=== PATIENT | female | born 1940 | race Two or more races ===

== ENCOUNTER 2021-01-30 11:05 | Emergency (ER) | payer OTHER ==
[~2021-01-30] VITALS: Ht 157.5 cm; Wt 54.4 kg
[~2021-01-30 11:05] MED LIST: DOLOGEN CAPLET1 EACH PO; SEPTRA DS TABLE1 TAB PO; SIMVASTATIN20 MG
== END 2021-01-30 12:50 | disposition home or self-care (01) ==
LOC: ER 11:05
DX: S90.01XS Contusion of right ankle, sequela (principal); W18.09XS Striking against other object with subsequent fall, sequela

== ENCOUNTER 2021-06-08 16:11 | Emergency (ER) | payer OTHER ==
[~2021-06-08] VITALS: Ht 152.4 cm; Wt 49.9 kg
== END 2021-06-08 18:46 | disposition home or self-care (01) ==
LOC: ER 16:11
DX: M25.562 Pain in left knee (principal); G89.11 Acute pain due to trauma

== ENCOUNTER 2021-10-30 10:23 | Emergency (ER) | payer OTHER ==
[~2021-10-30] VITALS: Ht 154.9 cm; Wt 54.4 kg
== END 2021-10-30 13:20 | disposition home or self-care (01) ==
LOC: ER 10:23
DX: M75.32 Calcific tendinitis of left shoulder (principal)

== ENCOUNTER 2023-04-15 07:39 | Emergency (ER) | payer OTHER ==
[~2023-04-15] VITALS: Ht 154.9 cm; Wt 54.4 kg
== END 2023-04-15 12:10 ==
LOC: ER 07:39
DX: M54.59 Other low back pain (principal); M19.90 Unspecified osteoarthritis, unspecified site

== ENCOUNTER 2023-07-14 16:29 | Emergency (ER) | payer OTHER ==
[~2023-07-14] VITALS: Ht 157.5 cm; Wt 54.4 kg
== END 2023-07-14 19:04 | disposition home or self-care (01) ==
LOC: ER 16:29
DX: M54.2 Cervicalgia (principal); Z91.041 Radiographic dye allergy status
CPT/HCPCS: 96372; 99284; J1885

== ENCOUNTER → 2025-09-15 | Emergency (ER) | payer OTHER ==
[~2025-09-15] VITALS: Ht 154.9 cm; Wt 54.4 kg
[~2025-09-15] MED LIST changes: +AMOX-CLAV 875-1 EACH PO; +CEFTRIAXONE SODIUM 1,000 MG VIAL IV ONE; +CEFTRIAXONE SODIUM 1,000 MG VIAL ONE; +DEXAMETHASONE SODIUM PHOSPHATE 4 MG/ML VIAL IV ONE; +DEXAMETHASONE SODIUM PHOSPHATE 4 MG/ML VIAL ONE; +FAMOTIDINE/PF 20 MG/2 ML VIAL IV ONE; +FAMOTIDINE/PF 20 MG/2 ML VIAL ONE; +INTESTINEX680 M1 PO; +KETOROLAC TROMETHAMINE 30 MG VIAL IV ONE; +KETOROLAC TROMETHAMINE 30 MG VIAL ONE; +PEPCID AC20 MG PO
[2025-09-15 19:28] LABS: BASO % 0.7 % (0.1-1.2); EOS # 0.18 (0.04-0.54); EOS % 2.2 % (0.7-7.0); LYMPH # 2.04 (1.18-3.74); LYMPH % 24.7 % (19.3-53.1); MEAN PLATELET VOLUME 10.20 fl (9.4-12.4); MONO # 0.76 (0.24-0.82); MONO % 9.2 % (4.7-12.5); NEUT # 5.18 (1.56-6.13); NEUT % 62.8 % (34.0-71.1); RED CELL DISTRIBUTION WIDTH 12.6 % (11.6-14.4)
[2025-09-15 19:33] LABS: ERYTHROCYTE SEDIMENTATION RATE 35 mm/hr (0-30)
[2025-09-15 19:43] LABS: BUN CREA RATIO 42.0 (7.0-25.0); CREATININE SERUM 0.5 mg/dL (0.55-1.02); GFR 117.83; GLUCOSE FASTING 101.0 mg/dL (65-100); OSMOLALITY SERUM 288.0 MOSM/KG (275-295)
== END | disposition home or self-care (01) ==
LOC: ER 16:27
PROVIDERS: Student in an Organized Health Care Education/Training Program
DX: L03.011 Cellulitis of right finger (principal); Z91.041 Radiographic dye allergy status